=== PATIENT | female | born 1945 | race Caucasian/White ===

== ENCOUNTER 2018-10-04 12:35 | Inpatient (IN) ==
[2018-10-04 16:01] LABS: EOS# 0.01 X1000 (0.0-0.7); EOS% 0.1 % (0.0-10.0); HEMATOCRIT 26.7 % (37.0-47.0); HEMOGLOBIN 8.8 g/dL (12.0-16.0); IMM GRAN# 0.05 X1000 (0.0-0.04); IMM GRAN% 0.3 % (0.0-0.5); LYMPH# 1.12 X1000 (1.2-3.4); LYMPH% 7.7 % (20.5-51.1); MCH 29.6 PG (27-31); MCV 89.9 FL (81-99); MONO# 0.58 X1000 (0.11-0.59); MPV 7.6 FL (7.4-10.4); NEUT# 12.72 X1000 (1.4-6.5); NEUT% 87.9 % (42.2-75.2); PLT 224 X1000 (130-400); RBC 2.97 XMIL (4.2-5.4); RDW 14.6 % (11.5-14.5); WBC 14.48 X1000 (4.8-10.8)
[2018-10-04 16:06] LABS: AGAP 5; ALB/GLOB RATIO 1.4; ALBUMIN 2.7 g/dL (3.5-5.0); ALKALINE PHOSPHATASE 49 U/L (32-104); BUN 18 mg/dL (8-22); CALCIUM 7.8 mg/dL (8.8-10.2); CHLORIDE 97 mmol/L (98-107); CK PROFILE 50 U/L (24-173); COSMO 261; CREATININE 0.5 mg/dL (0.5-0.9); ESTIMATED GFR > 60; GLUCOSE 76 mg/dL (70-104); GOT 22 U/L (10-30); GPT 44 U/L (10-36); POTASSIUM 3.8 mmol/L (3.5-5.1); SODIUM 130 mmol/L (136-145); TCO2 28 mmol/L (25-35); TOTAL BILIRUBIN 1.01 mg/dL (0.20-1.00); TOTAL PROTEIN 4.6 g/dL (6.3-8.3)
[2018-10-04 16:09] LABS: INR 0.98; PROTIME 13.7 Seconds (11.0-16.0)
--- NOTE | 2018-10-04 16:14 | EKG Report ---
Test Performed on : 10/04/2018 3:11:26 PM Test Reason : dyspnea Blood Pressure : / mmHG Vent. Rate : 066 BPM Atrial Rate : 066 BPM P-R Int : 156 ms QRS Dur : 080 ms QT Int : 418 ms P-R-T Axes : 026 014 024 degrees QTc Int : 438 ms Normal sinus rhythm. Low voltage QRS Borderline ECG No previous ECGs available Unconfirmed Result
[2018-10-04] MEDS ORDERED: NS 1,000 ML IV ONE (16:24)
[2018-10-04] MEDS ORDERED: DUONEB (A & A) INH PRN (16:24)
[2018-10-04 16:25] LABS: FREE T4 1.29 ng/dL (0.93-1.70); TSH 1.34 uIUmL (0.27-4.20)
[2018-10-04] MEDS ORDERED: VANCOMYCIN IV PER PHARMACY MISC SCH (16:30)
[2018-10-04 16:40] LABS: IRON SATURATION 16 %; TIBC 198 ug/dL; TOTAL IRON 32 ug/dL (49-151); UNBOUND IRON 166 ug/dL (112-346)
[2018-10-04 16:59] LABS: FERRITIN 176 ng/mL (13-150)
--- NOTE | 2018-10-04 17:49 | HISTORY AND PHYSICAL ---
CHIEF COMPLAINT: GI bleed. HISTORY OF PRESENT ILLNESS: Mrs. Humphries is a 73-year-old female with a history of COPD and hypertension, who was transferred from [facility] in [place] for left lower lobe atelectasis versus pneumonia, possible left lower lung collapse as well as GI bleed. She was initially admitted to [facility] for weakness and dizziness. She actually had a fall two weeks ago and broke a rib on the left. She was initially admitted to [facility] and GI was consulted. She did have some dark, tarry stools, which were heme positive and she ultimately did require some PRBC transfusion while she was there. However, she continued to have an elevated [place] and low-grade fever despite antibiotic treatment for presumed pneumonia. Director Of Food And Nutrition at [facility] felt it prudent for her to be seen by a rotary veneer machine operator prior to any type of endoscopic procedure and she was transferred to our facility. Currently, she has a massive hematoma over the left anterior abdomen, left flank and left posterior thorax, progressing all the way down to the mid gluteals. She does have some pain on palpation over the left flank but nothing severe or acute. She also reports dark, tarry stools but otherwise denies any other symptoms. No chest pain or shortness of breath. No nausea, vomiting, or diarrhea. She has had some lower extremity edema while she was at [facility] but this has improved somewhat, per her report. Lab data is currently pending, but she is noted to be anemic with a hemoglobin of 8.8 and a hematocrit of 26.7. She does have a white count of 14,500 and is slightly hyponatremic and hypoalbuminemic. Currently, a thorax, abdomen, and pelvis CT is pending. GI and Pulmonary have been consulted. Will admit her for further treatment. PAST MEDICAL HISTORY: 1. COPD. 2. Nicotine dependence. 3. Hypertension. 4. Depression. 5. Hyperlipidemia. 6. Fall with recent left rib fracture. 7. Chronic back pain, status post lumbar epidural steroid injection within the past month. PAST SURGICAL HISTORY: She has had a lumbar spine surgery and carpal tunnel release. SOCIAL HISTORY: She smokes half a pack to a pack a day. She smokes occasional marijuana "when she can" and denies alcohol use. Her granddaughter is at the bedside. She is /. FAMILY HISTORY: Noncontributory. REVIEW OF SYSTEMS: A 14-point review of systems was obtained and found to be negative with the exception of the HPI. ALLERGIES: Codeine and Bactrim. CURRENT MEDICATIONS: Being compiled. PHYSICAL EXAMINATION: VITAL SIGNS: Blood pressure is 121/54, heart rate is 64, respiratory rate 20, O2 saturation is 98% on 2L nasal cannula. Temperature is 99.2. GENERAL: This is a morbidly obese female lying in hospital bed in no acute distress. NEUROLOGICAL: Awake, alert, and oriented. Follows commands. No focal deficits. HEENT: Head is atraumatic and normocephalic. Her pupils are equal, round, and reactive to light. Oral mucosa is a bit dry and pale. NECK: Trachea is midline. There is no JVD. CHEST: Clear to auscultation. Diminished at the bases, left base greater than right. CARDIOVASCULAR: Regular rate and rhythm. S1 and S2 is noted. No appreciable murmurs. GASTROINTESTINAL: Soft, nondistended. Bowel sounds are hypoactive. There is massive hematoma about the left flank, posterior thorax, progressing down to the both gluteals. EXTREMITIES: Trace edema bilaterally. Pulses trace. SKIN: Warm. DIAGNOSTIC DATA: WBC is 14.48, hemoglobin 8.8, hematocrit 26.7, platelet count 224. INR 0.98. Sodium is 130, potassium 3.8, chloride 97, CO2 is 28, anion gap 5, BUN is 18, creatinine 0.5, glucose 76, calcium 7.8. Iron 32. TIBC 198. % saturation 16. Total bilirubin 1.01. AST 22 and ALT 44. Alkaline phosphatase 49. Albumin 2.7. TSH 1.34. Free T4 1.29. ASSESSMENT AND PLAN: 1. Persistent left lower lobe atelectasis/pneumonia: We will obtain a thorax CT and consult Pulmonary. We have ordered sputum cultures and blood cultures. Will add cefepime and vancomycin. 2. Gastrointestinal bleed: Will put her on Protonix twice a day and consult Gastroenterology. Will transfuse packed red blood cells if necessary. Will make sure and watch her hemoglobin and hematocrit closely every six hours. 3. Massive flank hematoma: This is likely secondary to her fall from two weeks ago. However, given her continued anemia, will need to make sure there is no active internal bleeding or retroperitoneal hematoma, although this is highly unlikely given her lack of severe pain and normal blood pressure. However, we have ordered an abdomen and pelvis CT. 4. Chronic obstructive pulmonary disease: Continue breathing treatments and pulmonary toilet. Pulmonary has been consulted. 5. Hypertension, stable: Continue home medications once reconciled. 6. Hyponatremia: Presumably hypovolemic given her blood loss. Will continue light intravenous fluids and check urine studies. 7. Deep venous thrombosis prophylaxis with sequential compression devices. Further recommendations to follow. Dictated by LEOPOLDO Nichols for Da Araya MD Addendum: Patient is seen and examined by myself. Agree with LEOPOLDO note. It reflects my assessment and plan. Patient is being admitted to hospital transferred from [facility] for possible pneumothorax and pneumonia but they did not ordered any CT scan of chest. Will order one. Will start broad spectrum IV antibiotics. Patient also had GI bleeding that apparently is stable so will consult GI and check CBC daily. Will monitor patient closely. cc: LEOPOLDO Nichols MD [facility]
[2018-10-04] MEDS: PROTONIX IV SCH (18:01)
[2018-10-04] MEDS: SODIUM CHLORIDE 0.9% INJ SCH (18:01)
[2018-10-04] MEDS: MAXIPIME 1 GM in NS 50 ML IV SCH (18:02)
[2018-10-04 18:26] LABS: BANDS 5 % (0-1); LYMPHS 7 % (21-51); MONO 1 % (1-9); SEGS 87 % (42-75)
--- NOTE | 2018-10-04 19:19 | Diag Imaging Result Doc PS360 ---
CT THORAX/ABD/PELVIS W/CON - 10/04/2018 INDICATION: massive abd wall hematoma, LLL atelectasis COMPARISON: None FINDINGS: CHEST: There is a trace right and small left pleural effusion. There is some vascular disease of the aortic arch and coronary arteries. Heart size is top normal with no pericardial effusion. There is mild COPD. There are some faint scattered infiltrates in the right upper lobe. There is some dependent consolidation or atelectasis in the lower lobes bilaterally left greater than right. There are displaced fractures of the left lateral ninth and 10th ribs. Abdomen pelvis: There is some indistinct bilateral flank edema that is nonspecific. No drainable soft tissue fluid collection. All abdominal organs are normal. There are small bilateral renal cysts. No bowel obstruction or inflammation. Urinary bladder, uterus, and rectum are normal. There is heavy vascular disease of the abdominal aorta and its pelvic branches. There is severe degeneration of the lumbar spine. No acute bony lesions in the abdomen. IMPRESSION: 1. Displaced fractures of the lateral left ninth and 10th ribs. 2. Trace right and small left pleural effusions. Dependent consolidations laterally. Faint infiltrate in the right upper lobe that may represent pneumonia. 3. Significant bilateral flank edema and no drainable soft tissue fluid collection. This exam was performed using automated exposure control, adjustment of mA or kV according to patient size, and/or use of iterative reconstruction technique Electronically signed by Agus Alonzo 10/04/2018 7:17 PM
[2018-10-04] MEDS: DUONEB (A & A) INH SCH ×2 (19:20→23:10)
[2018-10-04 19:41] LABS: HEMATOCRIT 26.9 % (37.0-47.0); HEMOGLOBIN 8.8 g/dL (12.0-16.0)
[2018-10-04 19:49] LABS: URINE SOURCE CLEAN CATCH
[2018-10-04 19:53] LABS: BILIRUBIN URINE NEGATIVE (NEGATIVE); BLOOD URINE NEGATIVE (NEGATIVE); COLOR YELLOW; GLUCOSE URINE NEGATIVE (NEGATIVE); KETONE URINE TRACE mg/dL (NEGATIVE); LEUKOCYTES URINE MODERATE (NEGATIVE); NITRITE URINE NEGATIVE (NEGATIVE); PH URINE 7.5; PROTEIN URINE TRACE mg/dL (NEGATIVE); SP GRAVITY URINE 1.037; TURBIDITY URINE CLEAR (CLEAR); UR EPITHELIAL CELLS <10 /HPF (<10); URINE BACTERIA NEGATIVE /HPF; URINE RBC <10 /HPF (<10); URINE WBC <10 /HPF (<10); UROBILINOGEN URINE NORMAL (NORMAL)
[2018-10-04] MEDS ORDERED: VANCOMYCIN 1,800 MG in NS 250 ML IV ONE (20:00)
[2018-10-04 20:02] LABS: URINE CRYSTALS NONE SEEN
--- NOTE | 2018-10-04 20:51 | PULMONOLOGY CONSULTATION ---
DATE: 10/04/2018 REQUESTING PHYSICIAN: Dr. Lama. REASON FOR CONSULTATION: Pneumothorax. HISTORY OF PRESENT ILLNESS: Ms. Humphries is a 73-year-old white female with greater than 60-pack- year history for tobacco, ongoing tobacco use, who reports she was in her usual state of health until approximately 2 weeks ago. The patient underwent a cervical epidural. She reports she initially felt well but then while walking her legs gave way. She fell against her left side fracturing a rib. She was evaluated in the emergency room at [facility], by her report she was discharged home. She was able to stand when she left. She again became weak and returned to the emergency room. Exact time frame of above events is not clear to this practitioner. While in the hospital, she was found to be anemic. By report, she had some dark tarry stools, although the patient reports she did not see the stools but was informed that she did have some GI bleeding. The patient has fairly extensive hematoma on her left chest wall and back. She has a cough but denies significant sputum production. GI was considering an endoscopy at the outside hospital but was concerned about her pulmonary status. She did require 4 units of packed red blood cells while at [facility]. She reports she was ambulating in the hospital but had an additional episode of lower extremity weakness. She denies bowel or bladder incontinence. PAST MEDICAL HISTORY: 1. Presumptive COPD with ongoing tobacco use. 2. Cervical spine disease as per above. 3. Hypertension. 4. Dyslipidemia. 5. History of depression. 6. Morbid obesity with a BMI of 40. SOCIAL HISTORY: Patient reports she lives alone. Ongoing tobacco use with occasional marijuana use. No alcohol use listed. FAMILY HISTORY: Noncontributory to current presentation. REVIEW OF SYSTEMS: As noted in the HPI but is otherwise negative. PHYSICAL EXAMINATION: Reveals an obese white female resting comfortably and in no distress. BP 124/60, heart rate 67, respiratory rate 16, oxygen saturation 99% on 2 L per nasal cannula.HEENT: Pupils are equal and reactive. Oropharynx is clear. Neck: Supple. Chest: Reveals diminished breath sounds left base. She has extensive hematoma which is dark purple from the left chest wall extending into the back and buttocks. Cardiac: S1-S2. Abdomen: Obese and soft. Extremities: Without edema. Neuro: Patient can move all extremities without difficulty. She does not appear to be overtly hyperreflexic in the lower extremities. Light touch is intact. LABORATORIES: CT scan of the thorax reveals displaced fractures of the left 9th and 10th ribs with small left effusion. She has consolidations on the left base with minor consolidation on the right, significant flank edema without fluid collection. White blood count 14.48, hemoglobin 8.8, platelet count 224,000. Sodium 130, potassium 3.8, chloride 94, bicarbonate 28, BUN 18, creatinine 0.5. Iron is low at 32, total iron-binding capacity 198, 16% saturation, total protein 4.6, albumin 2.7. IMPRESSION: A 73-year-old with chronic obstructive pulmonary disease, ongoing tobacco use, fall with multiple rib fractures, pulmonary contusion at the left base with small amount atelectasis at the right base, extensive flank wall hematoma, blood loss anemia associated with the hematoma and possible gastrointestinal bleeding, protein calorie malnutrition, with periodic lower extremity weakness. There is no evidence of pneumothorax. RECOMMENDATIONS: 1. Advance diet when appropriate per GI service. Patient reports she has been on clear liquids for the last 5 days. 2. Initiate incentive spirometry with bronchial hygiene. 3. Continue nebulizer treatment. 4. Recommend MRI of the cervical spine. The patient reports a cervical epidural and prior scans here were of the cervical spine supporting this history. Would recommend ensuring she does not have an epidural hematoma given her 2 to 3 episodes of falling. 5. Initiate physical therapy if MRI of the cervical spine is negative. 6. Smoking cessation is strongly recommended and was discussed with this patient. She reports she is not likely to stop smoking despite my counseling. 7. Yearly influenza vaccine is recommended. The patient reports that she does not take influenza vaccines despite recommendations. cc: Chevy Barcenas MD
[2018-10-05 02:18] LABS: HEMATOCRIT 27.4 % (37.0-47.0); HEMOGLOBIN 8.9 g/dL (12.0-16.0)
[2018-10-05] MEDS: DUONEB (A & A) INH SCH ×6 (03:15→23:20)
[2018-10-05] MEDS: MAXIPIME 1 GM in NS 50 ML IV SCH ×2 (03:31→16:18)
[2018-10-05] MEDS: PROTONIX IV SCH ×2 (03:31→16:19)
[2018-10-05 06:28] LABS: EOS# 0.06 X1000 (0.0-0.7); EOS% 0.5 % (0.0-10.0); HEMATOCRIT 27.4 % (37.0-47.0); HEMOGLOBIN 8.9 g/dL (12.0-16.0); IMM GRAN# 0.04 X1000 (0.0-0.04); IMM GRAN% 0.3 % (0.0-0.5); LYMPH# 0.86 X1000 (1.2-3.4); LYMPH% 6.5 % (20.5-51.1); MCH 29.3 PG (27-31); MCHC 32.5 g/dL (33-37); MCV 90.1 FL (81-99); MONO# 0.67 X1000 (0.11-0.59); MONO% 5.1 % (1.7-9.3); MPV 7.7 FL (7.4-10.4); NEUT# 11.52 X1000 (1.4-6.5); NEUT% 87.6 % (42.2-75.2); PLT 234 X1000 (130-400); RBC 3.04 XMIL (4.2-5.4); RDW 14.7 % (11.5-14.5); WBC 13.15 X1000 (4.8-10.8)
[2018-10-05 06:43] LABS: AGAP 7; BUN 15 mg/dL (8-22); CALCIUM 7.9 mg/dL (8.8-10.2); CHLORIDE 98 mmol/L (98-107); COSMO 270; CREATININE 0.5 mg/dL (0.5-0.9); ESTIMATED GFR > 60; GLUCOSE 73 mg/dL (70-104); POTASSIUM 4.4 mmol/L (3.5-5.1); SODIUM 135 mmol/L (136-145); TCO2 30 mmol/L (25-35)
[2018-10-05 07:26] LABS: EOS 2 % (1-10); LYMPHS 2 % (21-51); MONO 2 % (1-9); SEGS 94 % (42-75)
[2018-10-05] MEDS ORDERED: ATIVAN IV ONE (09:29)
[2018-10-05 09:35] LABS: HEMATOCRIT 27.9 % (37.0-47.0); HEMOGLOBIN 9.2 g/dL (12.0-16.0)
--- NOTE | 2018-10-05 10:09 | PROGRESS NOTE ---
DATE: 10/05/2018 SUBJECTIVE: Patient reports feeling fine with mild pain in the left side of the abdomen and the chest. OBJECTIVE: Vital Signs: Temperature 98.9 degrees, heart rate 70, respiratory rate 22, blood pressure 133/54, O2 saturation 97% on 2 L nasal cannula. General examination: This is a chronically ill-looking, 73-year-old female, lying in bed in no acute distress. HEENT: Head is normocephalic. No trauma. Neck: No JVD noted. No carotid bruits. No lymphadenopathy. No thyromegaly. Cardiovascular exam: S1, S2 heard. No murmurs, gallops, or rubs. Regular rate and rhythm. Respiratory exam: Decreased breath sounds globally, but mostly noted in the right base greater than the left. The patient is not using any accessory muscles or having work of breathing. Abdomen: Soft, nondistended, nontender to palpation. Bowel sounds present. No organomegaly. There is a massive hematoma above the left flank, posterior thorax, progressing down to both gluteals. Extremities: Mild pitting edema bilaterally. The patient is not using any accessory muscles or having work of breathing. Abdomen: Soft. Nontender to palpation. Bowel sounds present. No organomegaly. Extremities: No clubbing, cyanosis, or edema. Peripheral pulses present in both legs. Neurological exam: Patient alert and oriented x3. Moves 4 extremities. LABORATORY DATA: Reviewed. White cell count 13.15, hemoglobin 8.9, hematocrit 27.4, platelets 234. Normal BMP with calcium 7.9. ASSESSMENT AND PLAN: 1. Right upper lobe pneumonia. Patient has been transferred from [facility] with diagnosis of left lower lobe pneumonia versus pneumothorax. CT of the chest, abdomen and pelvis done here showed displaced fracture of the lateral left 9 and 10 reps with trace right and small left pleural effusion with dependent consolidation laterally and faint infiltrate in the right upper lobe that may represent pneumonia and significant bilateral edema with no drainable soft tissue fluid collection. In that regard, the patient has been started on vancomycin and cefepime. White cell count is slightly elevated. We will continue with the same management. Dr. Barcenas from Pulmonary has been consulted. We will follow recommendations. 2. Gastrointestinal bleeding. Apparently in [facility] she had an episode of gastrointestinal bleeding. Patient has been actually 5 days on a clear liquid diet, but no procedure has been done there yet. We have consulted Gastroenterology and apparently she was scheduled for an upper endoscopy, but the procedure was canceled. Because of that I decided to feed this patient and we will be up to Gastroenterology to see if this patient requires really upper endoscopy or colonoscopy as an inpatient. Hemoglobin is stable. We will continue to monitor. 3. Massive flank hematoma. As we mentioned before, is not drainable I think that this can explain the drop in hemoglobin. In any case, we are going to continue checking complete blood count daily. 4. Chronic obstructive pulmonary disease. Patient is on breathing treatment as needed. The patient is a heavy smoker. 5. Hypertension. Blood pressure here is under control. We will continue to monitor. 6. Hyponatremia, almost resolved. We will continue to check basic metabolic panel daily. 7. History of recurrent falls. That is the reason why this patient came to the hospital. The patient needs to start physical therapy here, but before as per Dr. Barcenas's recommendation, we need to obtain MRI of the cervical spine. The patient is claustrophobic, so we are going to provide Ativan intravenous just before the procedure. We will continue to monitor this patient closely. 8. Disposition: We will continue to monitor this patient closely here on the fourth floor. cc: Da Araya MD
[2018-10-05] MEDS: NICODERM PATCH TD SCH (11:55)
--- NOTE | 2018-10-05 14:12 | GASTROENTEROLOGY CONSULTATION ---
DATE: 10/05/2018 REASON FOR CONSULTATION: Anemia, questionable gastrointestinal bleed. HISTORY OF PRESENT ILLNESS: This is a 73-year-old, white female who was transferred here from [facility]. Symptom onset approximately 2 weeks ago. She had underwent a cervical epidural. She was doing well and states when she was walking, her legs gave way and she fell on her left side against a desk. She currently has a large hematoma around the left side all the way around to her lower back. She had continued weakness and returned back to the emergency room at [facility]. At that time during evaluation, she was found to be anemic. She states she has had workup by Dr. Swain there at [facility] and actually had plans to have a colonoscopy. She states she had actually went through the colon prep and then it was determined that she needed to be transferred to [facility] for a pulmonary evaluation. She has seen Dr. Barcenas. She had reported some dark stool. No reported bright red blood in the stool. She had a cough but no reported production of sputum. She reports she received blood while at [facility]. She has denied dizziness or lightheadedness. She states her last bowel movement was when she did her colon prep. She has reported some shortness of breath, especially with exertion or walking. She is on O2. She states she had a cervical epidural in [place] a little over 2 weeks ago. Patient reports her last EGD was in 2011. Patient had been seen by Dr. Hinton in the past and was last seen in January 2017. She had a colonoscopy at that time that showed polyps in the ascending colon, transverse and sigmoid colon along with rectum polyps. She also had diverticulosis and AVM in the colon and external hemorrhoids. After that colonoscopy, she was recommended by Dr. Hinton to have a followup colonoscopy in 6 to 9 months for removal of some polyps that were not removed at the time of that colonoscopy. Her pathology showed tubular adenomatous polyps and hyperplastic polyps. PAST MEDICAL HISTORY: 1. COPD. 2. Tobacco use. 3. Cervical spine disease with recent cervical epidural. 4. Hypertension. 5. Dyslipidemia. 6. Depression. PAST SURGICAL HISTORY: Back surgery, carpal tunnel surgery, colonoscopy in 2016, EGD in 2011. ALLERGIES: Codeine causing itching, Bactrim causing itching. HOME MEDICATIONS: 1. Aloe vera 5000 mg daily. 2. Aspirin 81 mg daily. 3. Celexa 20 mg daily. 4. Diltiazem 120 mg daily. 5. Vitamin D 2000 units daily. 6. Famotidine 20 mg twice a day. 7. Boniva 150 mg every 30 days. 8. Robaxin 750 mg every 6 hours as needed. 9. Zocor 20 mg every night. 10. Spironolactone 25 mg daily. 11. Ultram 1 to 2 tablets every 6 hours as needed. SOCIAL HISTORY: Positive for tobacco use, 1 pack of cigarettes a day for over 60 years. She reports rare alcohol use. She is . She has 2 daughters. She is retired. REVIEW OF SYSTEMS: Per history of present illness. PHYSICAL EXAMINATION: Vital Signs: Temperature 97.6 degrees, pulse 71, respirations 16, blood pressure 128/70. General: Patient is awake and alert, in no acute distress. HEENT: Normocephalic, atraumatic. Pupils equal, round, reactive to light. Sclerae nonicteric. Respiratory: Lung sounds somewhat decreased. Otherwise clear. Abdomen: Soft. Positive bowel sounds. Nontender. She does have a large hematoma to the left side and around to the lower back. Extremities: No lower extremity edema noted. She does have compression hose in place. Neurologic: Cranial nerves 2 through 12. Patient is awake and alert, oriented to person, place, and time. LABORATORY DATA: Hematology: WBC 13.15, hemoglobin 9.2, hematocrit 27.9, MCV 90.1, platelets 234,000. Chemistry: Sodium 135, potassium 4.4, chloride 98, CO2 30, BUN 15, creatinine 0.5, glucose 73, calcium 7.9, magnesium 2.0. Iron 32, TIBC 198, percent saturation 16, ferritin 176. Total bilirubin 1.01, AST 22, ALT 44, alkaline phosphatase 49. Folate 7.8. TSH 1.34, free T4 1.29. IMAGING STUDIES: Chest, abdomen and pelvis CT scan showed displaced fractures of the lateral left 9th and 10th ribs. Trace right and small left pleural effusions. Dependent consolidation laterally. Faint infiltrate in the right upper lobe, possibly representing pneumonia. Significant bilateral flank edema with no drainable soft tissue fluid collection. ASSESSMENT: 1. Right lower lobe pneumonia. Patient has been seen by Dr. Barcenas. Continue current respiratory management. She is on oxygen by nasal cannula. 2. Melena, anemia. Patient had workup being started at [facility] by Dr. Swain. She actually had plans for endoscopy and had already started a colon prep when it was decided she needed to be transferred to [facility]. 3. Left flank hematoma with recent fall. Continue to monitor hemoglobin and hematocrit. Noted nondrainable fluid on the CT scan. 4. History of chronic obstructive pulmonary disease. 5. Tobacco use. 6. Other medical problems including hypertension, congenital heart failure. PLAN: Continue to monitor hemoglobin and hematocrit. Monitor for any active bleeding. The patient had received transfused blood cells at [facility]. The patient had started workup with Dr. Swain. From our recommendations, she would first need an EGD for evaluation once her respiratory status is improved. I have discussed that with the patient and she prefers to follow with Dr. Swain as an outpatient if appropriate. If patient has acute GI bleeding or drop in her hemoglobin and hematocrit that would require endoscopy here, we would proceed with an EGD first. Again, we will continue to follow during her hospital course and further plans will be made according to findings. I have discussed this case with Dr. Coronel. Dictated by LEOPOLDO Cavazos for Dominick Coronel MD cc: LEOPOLDO Bond MD
[2018-10-05] MEDS: SODIUM CHLORIDE 0.9% INJ SCH (16:19)
--- NOTE | 2018-10-05 20:36 | PULMONOLOGY PROGRESS NOTE ---
DATE: 10/05/2018 SUBJECTIVE: The patient is awake and alert. She has a slightly wet cough. She reports they are taking her to the MRI this afternoon. OBJECTIVE: Vital Signs: The patient has been afebrile for the last 24 hours, BP 128/70, heart rate 71, respiratory rate 16, oxygen saturation 97%. HEENT: Pupils are equal and reactive. Oropharynx is clear. Neck: Supple. Chest: Reveals decreased breath sounds left base. Cardiac exam: S1 and S2. Abdomen: Soft with extensive left flank and back hematoma. Extremities: Without edema. LABORATORY DATA: White blood count 13.15, hemoglobin 8.9, platelet count 234,000, sodium 135, potassium 4.4, chloride 15, creatinine 0.5. IMPRESSION: A 73-year-old with: 1. Chronic obstructive pulmonary disease. 2. Ongoing tobacco use. 3. Recurrent falling with rib fractures. 4. Pulmonary contusion on the left with small amount of atelectasis on the right. 5. Flank wall hematoma. 6. Blood loss anemia. 7. Protein calorie malnutrition. 8. Possible gastrointestinal bleeding. RECOMMENDATIONS: 1. Diet as per the GI service. 2. Continue incentive spirometry for bronchial hygiene. 3. Continue nebulizer therapy. 4. MRI was ordered for 7:00 this morning and is pending. 5. Initiate physical therapy if the MRI is negative for acute disease. 6. Smoking cessation strongly recommended. 7. Influenza vaccine recommended but declined by the patient. cc: Chevy Barcenas MD
[2018-10-06] MEDS: VANCOMYCIN 1,600 MG in NS 250 ML IV SCH (01:28)
[2018-10-06] MEDS: DUONEB (A & A) INH SCH ×6 (03:20→23:20)
[2018-10-06] MEDS: MAXIPIME 1 GM in NS 50 ML IV SCH ×3 (04:17→18:50)
[2018-10-06] MEDS: SODIUM CHLORIDE 0.9% INJ SCH ×2 (05:26→15:27)
[2018-10-06] MEDS: PROTONIX IV SCH ×3 (05:26→18:50)
[2018-10-06 06:14] LABS: EOS# 0.05 X1000 (0.0-0.7); EOS% 0.4 % (0.0-10.0); HEMOGLOBIN 8.6 g/dL (12.0-16.0); IMM GRAN# 0.04 X1000 (0.0-0.04); IMM GRAN% 0.3 % (0.0-0.5); LYMPH# 0.78 X1000 (1.2-3.4); LYMPH% 6.7 % (20.5-51.1); MCH 29.6 PG (27-31); MCHC 33.1 g/dL (33-37); MCV 89.3 FL (81-99); MONO% 4.3 % (1.7-9.3); MPV 7.6 FL (7.4-10.4); NEUT# 10.24 X1000 (1.4-6.5); NEUT% 88.3 % (42.2-75.2); PLT 256 X1000 (130-400); RBC 2.91 XMIL (4.2-5.4); RDW 14.8 % (11.5-14.5); WBC 11.61 X1000 (4.8-10.8)
[2018-10-06 06:34] LABS: AGAP 7; BUN 14 mg/dL (8-22); CHLORIDE 100 mmol/L (98-107); COSMO 269; CREATININE 0.4 mg/dL (0.5-0.9); ESTIMATED GFR > 60; GLUCOSE 98 mg/dL (70-104); POTASSIUM 3.8 mmol/L (3.5-5.1); SODIUM 134 mmol/L (136-145); TCO2 27 mmol/L (25-35)
[2018-10-06] MEDS: NICODERM PATCH TD SCH (09:36)
[2018-10-06] MEDS ORDERED: ATIVAN ONE (10:57)
[2018-10-06] MEDS ORDERED: NAPROSYN PO PRN ×2 (12:50→13:00)
--- NOTE | 2018-10-06 13:19 | PROGRESS NOTE ---
DATE: 10/06/2018 SUBJECTIVE: Patient reports feeling fine. Denies any black stools or melena or hematemesis. The patient reports breathing better. OBJECTIVE: Vitals: Temperature 98.5, heart rate 80, respiratory rate 20, blood pressure 123/43, O2 saturation 96% on 2 L nasal cannula. General Examination: This is a chronically ill-looking 73-year-old female, lying in bed, in no acute distress. Cardiovascular: S1, S2 heard. No murmurs, gallops, or rubs. Regular rate and rhythm. Respiratory: Decreased breath sounds globally but mostly noted in the left base. The patient is not using any accessory muscles or having work of breathing. Abdomen: Soft. There is extensive left flank and back hematoma noted. There are no signs of peritoneal irritation. Extremities: Mild pitting edema in both lower extremities. Patient has peripheral pulses present. Neurological: Patient alert, oriented x3. Moves 4 extremities. LABORATORY DATA: White cell count 11.6, hemoglobin 8.6, hematocrit 26.0, platelets 572,056. BMP remarkable for sodium 134, creatinine 0.4. ASSESSMENT: 1. Right upper lobe pneumonia. That is the finding in the CAT scan of the chest done on admission. The patient is on vancomycin and cefepime day #2 of both medications. We will continue to monitor this patient closely. 2. Gastrointestinal (GI) bleeding. Apparently in [facility], where this patient was transferred from, she had GI bleeding and apparently, there were plans to do EGD and colonoscopy but she was transferred over here. Dr. Coronel from Gastroenterology has evaluated this patient, but considering that her hemoglobin is stable, patient prefers to be seen by Dr. Swain upon discharge. 3. Massive left flank hematoma. As mentioned before, that is not drainable. That could explain the drop in hemoglobin. In any case, we will continue to monitor this patient closely. 4. Recurrent falls with 3 fractures. The patient is not complaining of any pain. I think considering this problem she needs to go to rehabilitation. She is in agreement with the plan. 5. Protein-calorie malnutrition. Aware. 6. Hypertension. Blood pressure is under control. We will continue with the same management. 7. Chronic obstructive pulmonary disease (COPD). Patient is not in any exacerbation. We will continue to provide breathing treatments as needed only. 8. Hyponatremia, almost resolved. DISPOSITION: I think, considering her recurrent falls, we need to send this patient to a rehabilitation facility. We will continue with antibiotics for pneumonia. We will monitor this patient closely. cc: Da Araya MD MTDD
--- NOTE | 2018-10-06 15:07 | Diag Imaging Result Doc PS360 ---
EXAM: MRI CERVICAL SPINE W/O CON 10/05/2018 HISTORY: s/p cervical epidural and episodic leg weekness TECHNIQUE: T1-T2 and STIR sagittal, T1 and T2 and cube T2 axial COMMENT: There is no evidence of bony edema. There is an apparent effusion present in the left facet at C1-2. Compared to the previous examination of 05/19/2018 the signal abnormalities in the odontoid appear to have improved somewhat. At the C2-3 level there is some narrowing of the right foramen. No spinal stenosis is present. At C3-4 there is no evidence of foraminal or spinal stenosis. At the C4-5 level there is some posterior disc bulge without evidence of spinal or foraminal stenosis. At the C5-6 level there is posterior osteophyte formation and disc bulge there is some foraminal stenosis particularly on the left side. At the C6-7 level there is a protruded nucleus pulposus impinging on the cord on the right side. This was also present at the time the previous study of 05/19/2018 and is slightly improved in appearance. There is narrowing of the right foramen. At C7-T1 there is osteophyte formation without evidence of spinal or foraminal stenosis. IMPRESSION: Herniated nucleus pulposis at C6-7. This appears to have desiccated and diminished in size somewhat since the previous study. Chronic degenerative disc changes with multilevel foraminal stenosis as described. Effusion in the left facet at C1-2. Electronically signed by Greg Gar 10/06/2018 3:05 PM
--- NOTE | 2018-10-06 15:46 | GASTROENTEROLOGY PROGRESS NOTE ---
DATE: 10/06/2018 SUBJECTIVE: Patient states she is feeling better. She has less shortness of breath. She is lying in the bed. She is currently not wearing oxygen and denies complaints. She denies any black stools or hematemesis. She had MRI this morning, results not available as of yet. OBJECTIVE: Vital Signs: Temperature 97.5 degrees, pulse 86, respirations 18, blood pressure 149/60. General: Patient is awake, alert, no acute distress. She denies significant complaint. LABORATORY: Hematology: WBC 11.61, hemoglobin 8.6, hematocrit 26.0, MCV 89.3, platelets 256. Chemistry: Sodium 134, potassium 3.8, chloride 100, CO2 27. BUN 14, creatinine 0.4, glucose 98, calcium 8.0. ASSESSMENT AND PLAN: 1. Right upper lobe pneumonia on antibiotics. 2. Recent melena, anemia. She had been seen by Dr. Swain at [facility], and an esophagogastroduodenoscopy and colonoscopy were actually scheduled until they decided she needed further pulmonary evaluation. Patient wishes to follow back with Dr. Swain once she is discharged. 3. Recent fall with left flank hematoma could possibly be exacerbating her anemia. 4. Recent fall with rib fractures. I believe they are talking about rehab. 5. We will continue to follow during her hospital course. Further plans to be made according to her progress. If she has active bleeding or significant drop in her hemoglobin and hematocrit, would recommend an esophagogastroduodenoscopy evaluation first. If possible, we recommend that she have further workup as an outpatient once her respiratory status has improved. Patient currently wishes to follow back with Dr. Swain, who had started workup at [facility]. I have given her our contact information for her to follow up with Dr. Coronel if she changes her mind. We will continue to follow during her hospital course, and I have discussed this case with Dr. Coronel. Dictated by LEOPOLDO Cavazos for Dominick Coronel MD cc: LEOPOLDO Bond MD
--- NOTE | 2018-10-07 01:40 | PULMONOLOGY PROGRESS NOTE ---
DATE: 10/06/2018 SUBJECTIVE: The patient is awake, alert, and conversant. She has a good cough. She reports she overall feels better. Vital Signs: BP 122/68, heart rate 83, respiratory rate 20, oxygen saturation 99% on room air. HEENT: Pupils are equal and reactive. Oropharynx is clear. Neck: Supple. Chest: Reveals rhonchi bilaterally. Cardiac: S1-S2. Abdomen: Soft and without hepatosplenomegaly. Extremities: Reveal trace edema. LABORATORIES: MRI of the cervical spine is reviewed. She has a herniated nucleus pulposus at C6- C7, but it appears to have decreased in size compared to 05/19/2018. She also has an effusion present at the left facet at C1-C2 which has also improved. Sodium 134, potassium 3.8, chloride 100, bicarbonate 27, BUN 14, creatinine 0.4. White blood count 11.6, hemoglobin 8.6, platelet count 256,000. IMPRESSION: 1. A 73-year-old with chronic obstructive pulmonary disease. 2. Ongoing tobacco use. 3. Fall with fractures of the left chest with pulmonary contusion. 4. Flank wall hematoma. 5. Blood loss anemia. 6. Protein calorie malnutrition. 7. Possible gastrointestinal bleeding. RECOMMENDATIONS: 1. Initiate physical therapy. Her MRI actually appears improved compared to her May scan. 2. Continue incentive spirometry for bronchial hygiene. 3. Continue nebulizer therapy. 4. Smoking cessation has been strongly recommended. 5. Recommend influenza vaccine, but the patient has declined. 6. I agree with Dr. Lama's note. The patient will likely require a rehabilitation stay at the time of discharge. cc: Chevy Barcenas MD
[2018-10-07] MEDS: DUONEB (A & A) INH SCH ×6 (03:17→23:28)
[2018-10-07] MEDS: MAXIPIME 1 GM in NS 50 ML IV SCH ×2 (03:58→15:49)
[2018-10-07] MEDS: PROTONIX IV SCH ×2 (03:58→15:49)
[2018-10-07 07:42] LABS: AGAP 8; BUN 18 mg/dL (8-22); CALCIUM 7.8 mg/dL (8.8-10.2); CHLORIDE 102 mmol/L (98-107); COSMO 276; CREATININE 0.4 mg/dL (0.5-0.9); ESTIMATED GFR > 60; GLUCOSE 99 mg/dL (70-104); POTASSIUM 3.9 mmol/L (3.5-5.1); SODIUM 137 mmol/L (136-145); TCO2 27 mmol/L (25-35)
[2018-10-07 07:43] LABS: EOS# 0.05 X1000 (0.0-0.7); EOS% 0.5 % (0.0-10.0); HEMATOCRIT 26.4 % (37.0-47.0); HEMOGLOBIN 8.5 g/dL (12.0-16.0); IMM GRAN# 0.02 X1000 (0.0-0.04); IMM GRAN% 0.2 % (0.0-0.5); LYMPH# 0.91 X1000 (1.2-3.4); LYMPH% 9.6 % (20.5-51.1); MCH 29.3 PG (27-31); MCHC 32.2 g/dL (33-37); MONO# 0.49 X1000 (0.11-0.59); MONO% 5.2 % (1.7-9.3); MPV 7.9 FL (7.4-10.4); NEUT# 7.97 X1000 (1.4-6.5); NEUT% 84.5 % (42.2-75.2); PLT 291 X1000 (130-400); RDW 15.3 % (11.5-14.5); WBC 9.44 X1000 (4.8-10.8)
[2018-10-07] MEDS: NICODERM PATCH TD SCH (08:35)
[2018-10-07] MEDS: VANCOMYCIN 1,600 MG in NS 250 ML IV SCH (08:35)
--- NOTE | 2018-10-07 12:26 | Diag Imaging Result Doc PS360 ---
EXAM: CHEST-PORTABLE HISTORY: rehab TECHNIQUE: Portable chest single view COMPARISON: None. FINDINGS: The lungs are well expanded. No pneumothoraces. The heart is not enlarged. The vessels are not distended. There are mild increased markings in the left lung base. Small left pleural effusion. IMPRESSION: Atelectasis versus a small infiltrate in the left base with a small left pleural effusion. Electronically signed by Iggy Hicks 10/07/2018 12:24 PM
--- NOTE | 2018-10-07 15:19 | GASTROENTEROLOGY PROGRESS NOTE ---
DATE: 10/07/2018 SUBJECTIVE: Ms. Humphries is resting comfortably. She reports no new complaints. She has not had any signs of active bleeding. Her hemoglobin and hematocrit is 8.5 and 26.4. She tells me she is waiting to be transferred to a rehab center and she would follow Dr. Swain for further GI workup. PLAN: At this point, no new suggestions from us. If she is still in the hospital and needs our attention, we will be available. cc: Dominick Coronel MD
--- NOTE | 2018-10-07 15:32 | PROGRESS NOTE ---
DATE: 10/07/2018 INTERVAL HISTORY: The patient has no acute events. The patient has been feeling fine however, she is feeling very weak and she wants to go to rehab. I discussed with her about the need for 48 hours of intravenous antibiotics, and then consider discharging her to rehab hopefully tomorrow. She denies any chest pain. She denies any shortness of breath. She denies any abdominal pain, nausea, or vomiting. She has not had bloody vomiting or bloody diarrhea since admission to this hospital. PHYSICAL EXAMINATION: Vital Signs: Currently, temperature of 98 degrees, pulse of 89 per minute, respiratory 16, blood pressure 118/55, and saturating 98% on room air. General: Morbidly appearing lady not in any acute distress. Mild conjunctival pallor. No cyanosis, clubbing, or icterus. Oral cavity is moist. Lungs: Air entry: She has generalized decreased air entry in lung carter without any wheeze, rhonchi, or crackles. Cardiovascular: S1, S2 normal. No murmur, rub, or gallop. Abdomen: Obese. She has a hematoma affecting hypogastric region in the left lower quadrant and left lower back. Back: There is no tenderness. It appears to be subcutaneous hematoma. She has mild lower extremity edema. LABORATORY: Suggestive of resolution of leukocytosis, normocytic anemia with stable hemoglobin, normal platelet count and normal electrolytes. ASSESSMENT AND PLAN: 1. Right upper lobe pneumonia based on the CAT scan. Continue intravenous vancomycin and intravenous cefepime. I will change it to levofloxacin tomorrow to complete 5 days of treatment. She appears a little short of breath during my encounter. I will continue albuterol ipratropium nebulization. and monitor for now. 2. History of melena on presentation when she was transferred from [facility] leading to acute blood loss anemia in the setting of GI bleed. Continue pantoprazole IV q.12 hours. The patient would likely get outpatient EGD and colonoscopy with Dr. Swain. 3. Massive left flank hematoma, stable. 4. Recurrent fall with rib fracture. The patient would benefit from rehab. 5. Hypertension currently stable. 6. COPD currently not in acute exacerbation. 7. Disposition: The patient will be transferred to rehab tomorrow if she continues to improve and doesn't have any shortness of breath anymore. Plan of care was discussed with her. All of her questions have been answered. cc: Ramírez Keen MD MTDD
[2018-10-07] MEDS: SODIUM CHLORIDE 0.9% INJ SCH (15:49)
[2018-10-07] MEDS: MBX SOLUTION MT PRN ×2 (15:50→18:53)
--- NOTE | 2018-10-07 21:26 | PULMONOLOGY PROGRESS NOTE ---
DATE: 10/07/2018 SUBJECTIVE: The patient is awake, alert and conversant. She reports she did ambulate down the hallway. She denies purulent sputum production. OBJECTIVE: The patient has been afebrile for the last 24 hours. Blood pressure 134/57, heart rate 87, respiratory rate 16, oxygen saturation 97% on room air. HEENT: Pupils are equal and reactive. Oropharynx is clear. Neck is supple. Chest reveals decreased breath sounds, left base. Cardiac exam: S1, S2. Abdomen is obese and soft. Extremities without edema. DIAGNOSTIC DATA: Chest x-ray reveals mild changes at the left base. LABORATORY DATA: White blood count 9.44, hemoglobin 8.5, platelet count 291,000. Sodium 137, potassium 3.9, chloride 102, bicarbonate 27, BUN 18, creatinine 0.4. IMPRESSION: A 73-year-old with: 1. Chronic obstructive pulmonary disease. 2. Ongoing tobacco use. 3. Recent fall with fractures of the left chest with a pulmonary contusion. 4. Flank wall hematoma. 5. Blood loss anemia. 6. Protein-calorie malnutrition. RECOMMENDATIONS: 1. Continue physical therapy. The patient reports she did ambulate down the hallway. 2. Continue incentive spirometry. 3. Smoking cessation was discussed and recommended. 4. Recommend yearly influenza vaccine, which the patient has declined. 5. The patient continues to improve. I believe she would be a good candidate to discharge to a rehabilitation center on 10/08/2018 if she continues to improve. cc: Chevy Barcenas MD
[2018-10-08] MEDS: MAXIPIME 1 GM in NS 50 ML IV SCH ×2 (03:21→05:30)
[2018-10-08] MEDS: SODIUM CHLORIDE 0.9% INJ SCH (03:22)
[2018-10-08] MEDS: PROTONIX IV SCH ×2 (03:22→03:33)
[2018-10-08] MEDS: DUONEB (A & A) INH SCH ×3 (03:59→10:58)
[2018-10-08 07:14] LABS: AGAP 11; BUN 18 mg/dL (8-22); CALCIUM 8.3 mg/dL (8.8-10.2); CHLORIDE 101 mmol/L (98-107); COSMO 267; CREATININE 0.4 mg/dL (0.5-0.9); ESTIMATED GFR > 60; GLUCOSE 81 mg/dL (70-104); POTASSIUM 4.8 mmol/L (3.5-5.1); SODIUM 133 mmol/L (136-145); TCO2 21 mmol/L (25-35)
[2018-10-08] MEDS: MBX SOLUTION MT PRN ×2 (09:36→13:38)
[2018-10-08] MEDS: NICODERM PATCH TD SCH (09:36)
[2018-10-08 12:20] VITALS: BP 125/51
--- NOTE | 2018-10-08 14:04 | PROGRESS NOTE ---
DATE: 10/08/2018 INTERVAL HISTORY: No acute events overnight. SUBJECTIVE: Patient is sitting in the chair by the bed. Her daughter is at bedside. Currently denying any chest pain, shortness of breath, nausea, vomiting, abdominal pain, diarrhea or any blood in stool. Denies any new complaints. PHYSICAL EXAMINATION: Vital Signs: Temperature of 98.4 degrees, pulse 85, respiratory rate 18, blood pressure 125/51, saturating 96% on room air. General: Morbidly obese not in any acute distress. Oral cavity moist. Aphthous ulcers better as compared to previous examination. No pallor, cyanosis, clubbing or icterus. Lungs: Air entry bilaterally decreased because of chronic obstructive pulmonary disease with mild crackles at bilateral infrascapular region. Heart: S1, S2 normal. No murmur or gallop. Abdomen: Obese. Hematoma affecting hypogastric region and left lower quadrant and left lower back without any tenderness. It appears to be subcutaneous and it is improving. Extremities: Mild bilateral lower extremity edema. LABORATORY: Suggestive of resolution of leukocytosis, normocytic anemia with stable hemoglobin previously. ASSESSMENT AND PLAN: 1. Bilateral lower lobe pneumonia based on CAT scan. 2. Gastrointestinal bleed, would likely require outpatient EGD and colonoscopy. 3. Acute blood-loss anemia. 4. Recurrent fall with rib fracture and massive left flank hematoma. 5. Essential hypertension. 6. COPD without acute exacerbation. 7. Disposition: Patient will be discharged to rehab. Plan of care were discussed with her. All of her questions have been answered. The patient's daughter's questions have also been answered. She should complete levofloxacin course. She will be on proton pump inhibitor. She should follow up outpatient with Dr. Swain peg driver for EGD and colonoscopy. cc: Ramírez Keen MD
--- NOTE | 2018-10-08 14:24 | GASTROENTEROLOGY PROGRESS NOTE ---
DATE: 10/08/2018 SUBJECTIVE: The patient is awake and alert, no acute distress. She has denied any evidence of active bleeding. I believe she will be transferred to rehab and then she plans to follow up with Dr. Swain in [place] for further GI workup. OBJECTIVE: Vital signs: Temperature 97.8 degrees, pulse 72, respirations 20, blood pressure 135/62. General: Patient is awake and alert, no acute distress. LABORATORY: Hematology: WBC 9.44, hemoglobin 8.5, hematocrit 26.4, MCV 91.0, platelet 291. Chemistry: Sodium 133, potassium 4.8, chloride 101. BUN 18, creatinine 0.4. ASSESSMENT AND PLAN: 1. Right upper lobe pneumonia. 2. Recent fall with left flank hematoma and fractured ribs. 3. Anemia. The patient had some melena that seems to have resolved. She had started workup with Dr. Swain and [facility]; she plans to follow back with him. I have also given her our contact number if she decides to follow with Dr. Coronel. I have discussed this case with Dr. Coronel. Further plans will be made as needed. Dictated by LEOPOLDO Cavazos for Dominick Coronel MD cc: LEOPOLDO Bond MD
--- NOTE | 2018-10-08 15:54 | DISCHARGE SUMMARY ---
ADMISSION DATE: 10/04/2018 DISCHARGE DATE: 10/08/2018 PRIMARY CARE PHYSICIAN: None listed. CONSULTATIONS: 1. Dr. Barcenas with Pulmonology. 2. Dr. Coronel with GI. PROCEDURES AND FINDINGS: 1. CT of the chest, abdomen, pelvis, 10/04/2018 reveals displaced fractures of the lateral left 9th and 10th ribs, trace right and small left pleural effusions, dependent consolidations laterally, faint infiltrate in the right upper lobe that may represent pneumonia, significant bilateral flank edema, and no drainable soft tissue fluid collection. 2. Cervical spine MRI, 10/05/2018 reveals herniated nucleus pulposus at C6 and C7, chronic degenerative disk changes with multilevel foraminal stenosis, and fusion in the left facet at C1-2. 3. Chest x-ray 10/07/2018 reveals atelectasis versus a small infiltrate in the left base with a small left pleural effusion. 4. EKG 10/04/2018 reveals sinus normal sinus rhythm. DISCHARGE DIAGNOSES: 1. Right upper lobe pneumonia based on CT scan. She received IV vancomycin and cefepime during her hospital admission. She will be transitioned to p.o. levofloxacin to complete a 5 day course of treatment. She will also continue with albuterol nebulizer. 2. History of melena on presentation leading to acute blood loss anemia in the setting of GI bleed. She has remained stable, and has not required any GI interventions during her hospital stay. She will follow up outpatient with Dr. Wiliam AYOUB for further treatment. Her hemoglobin and hematocrit is currently 8.5 and 26.4. 3. Massive left flank hematoma. This is stable. CT scan revealed a non drainable soft tissue contusion. 4. Fall with rib fracture. This patient will be discharged to [facility] for further rehabilitation and physical therapy. 5. Hypertension, currently stable. 6. Chronic obstructive pulmonary disease not in exacerbation. HOSPITAL COURSE: Ms. Humphries is a 73-year-old female with a past medical history of COPD and hypertension, who was transferred from [facility] in [place] for left lower lobe atelectasis versus pneumonia and GI bleed. She was admitted to [facility] for weakness and dizziness after sustaining a fall 2 weeks ago. GI was consulted at [facility], and she required packed red blood cell transfusion at that time. She was noted to have an elevated white count and low-grade fever and presumed pneumonia. The superintendent radio communications at [facility] felt this patient should be evaluated by pulmonology before proceeding with any endoscopic GI procedures. Therefore, she was transferred to [facility]. She reported dark tarry stools, but denied chest pain or shortness of breath, nausea, vomiting, or diarrhea. Blood cultures and urine cultures were obtained and have remained negative. She was started on cefepime and vancomycin. A CT of the abdomen and pelvis was conducted with results as stated above. Dr. Barcenas with Pulmonology was consulted and supportive care was maintained throughout her hospital stay. Her hemoglobin and hematocrit has remained stable and she was seen by Dr. Coronel with GI. No procedures were required during her hospital stay regarding GI bleed. She will follow up with GI within 2 weeks for outpatient endoscopic procedures. She has clinically improved now, and is stable for discharge to rehab in [facility]. She is now without shortness of breath and her respiratory status has improved. Her last vital signs temperature 98.4 degrees, heart rate 85, respiratory rate 18, blood pressure 125/51, and O2 saturation 96% on room air. Last labs reveal WBC 9.4, hemoglobin 8.5, hematocrit 26.4, and platelets 291,000. Sodium 133, potassium 4.8, BUN 18, creatinine 0.4, and calcium 8.3. Troponin negative. TSH 1.34. DISCHARGE MEDICATIONS: Per Dr. Keen. Please see MAR. FOLLOWUP: This patient will be discharged to [facility] for further rehabilitation. She will follow up with Dr. Swain with Gastroenterology 2 weeks after discharge for possible endoscopy. She should continue inhalers for COPD, and return to the emergency department for any increase in shortness of breath, chest pain, or worsening of symptoms. Dictated by LEOPOLDO Gutierrez for Ramírez Keen MD cc: MD Chevy Leonard MD Khurshid Yousuf, MD
[2018-10-08] MEDS: VANCOMYCIN 1,600 MG in NS 250 ML IV SCH (16:00)
== END 2018-10-08 16:05 | DRG 194 ==
LOC: DIRADM 12:35 → SUATTDRO 12:35 → 4N 14:38
PROVIDERS: ATTEND Internal Medicine
CPT/HCPCS: 71010; 71045; 71260; 72141; 74177; 80048; 80053; 81001; 82550; 82607; 82728; 82746; 83540; 83550; 83735; 83935; 84439; 84443; 84484; 85014; 85018; 85025; 85610; 86850; 86900; 86901; 87040; 87088; 87275; 87276; 87804; 93005; 93010; 94640; 94760; 94761; 94799; 97162; 97530; A9270; C9113; J0692; J2060; J3370; J7030; J7050; Q9967; S0164